=== PATIENT | male | born 1965 | race Caucasian/White ===

== ENCOUNTER 2023-06-06 14:02 | Outpatient (AMB) | payer BC, SELFPAY ==
--- NOTE | 2023-06-06 14:29 | HO.NEPHOV ---
HPI HPI Comments History of Present Illness Details I would the privilege of seeing Peewee in consultation lower extremity edema. He has history of vascular disease. He had undergone left AKA in [place] during a work trip many years ago due to acute ischemic left lower extremity. He subsequently underwent right fem tibial bypass in [place]. He has been having underlying edema on the right lower extremity. He denies any symptoms of right heart failure. He has not known to have any proteinuria, liver dysfunction , renal failure. He has not been on any medication causing lower extremity edema. He is known to have nephrolithiasis and has been on potassium citrate. He takes Topamax. She denied taking excess sodium in the diet. He has been taking furosemide with modest improvement. He denies any chest pain, shortness of breath or urinary symptoms. His renal functions are normal. [facility] Medical History (Updated 07/08/23 @ 12:49 by Kwaku Bellamy MD) Phantom limb pain Peripheral vascular disease Peripheral edema Neuropathic pain of lower extremity Limitation due to disability Hypogonadism male Hypertension HLD (hyperlipidemia) Edema leg Dysbetalipoproteinemia Surgical History (Updated 06/06/23 @ 14:12 by Latanya Tomas MA) S/P AKA (above knee amputation) Family History (Updated 06/06/23 @ 14:13 by Latanya Tomas MA) Father Alzheimer disease Stroke Social History (Updated 06/06/23 @ 14:13 by Latanya Tomas MA) Alcohol intake: former Patient Tobacco Use Status: Never used Tobacco Vital Signs 06/06/23 14:31 Height 6 ft Weight 281 lb 4 oz BMI 38.1 BP 134/90 H Blood Pressure Location Lt brachial Position Sitting Pulse 94 Pulse Source Pulse Oximeter Pulse Oximetry (%) 96 Oxygen Delivery Method Room Air Physical Exam Vital Signs: Last Vital Signs Pulse 94 06/06/23 14:31 BP 134/90 H 06/06/23 14:31 Pulse Ox 96 06/06/23 14:31 Oxygen Delivery Method Room Air 06/06/23 14:31 BMI result Body Mass Index 38.1 Const General: comfortable and no acute distress Orientation/consciousness: patient oriented x3 HEENT Head: Yes normocephalic Mouth: Normal oral and palatal mucosa present Eyes EOM: EOMs intact bilaterally Neck Neck: Yes supple Resp Auscultation: clear to auscultation bilaterally Cardio Jugular venous distension: no JVD Rate: regular rate GI Palpation (GI): Soft to palpation Auscultation: normal bowel sounds General: Yes no CVA tenderness Back/Spine/Pelvis Back: no CVA tenderness Skin General skin exam: no rashes or lesions noted Neuro General: patient oriented x3 and moves all extremities Extrem Other: L AKA Assessment & Plan Assessment & Plan (1) Edema: Code(s): R60.9 - Edema, unspecified Qualifiers: Edema type: unspecified Qualified Code(s): R60.9 - Edema, unspecified Plan Peewee has lower extremity edema most likely due to multifactorial etiology. He has vascular disease and has undergone femoro tibial bypass on that extremity. He denies consuming excessive sodium in the diet. I have ordered urine for protein, pro BNP, liver function and renal functions. I have switched his furosemide to hydrochlorothiazide 3 times a week. He also takes potassium citrate for nephrolithiasis. If he has not had an echocardiogram recently, it is worth doing the same. All these have been discussed in detail. I answered all his and his 's questions. Follow-up appointment given Orders: Orders NT-proBNP 06/06/23 R60.9 - Edema, unspecified Alanine Aminotransferase 06/06/23 R60.9 - Edema, unspecified Blood Urea Nitrogen 06/06/23 R60.9 - Edema, unspecified Creatinine 06/06/23 R60.9 - Edema, unspecified Aspartate Amino Transferase 06/06/23 R60.9 - Edema, unspecified Albumin Level 06/06/23 R60.9 - Edema, unspecified Protein Creatinine Ratio, Ur 06/06/23 R60.9 - Edema, unspecified Electrolytes 06/06/23 R60.9 - Edema, unspecified Medications: New hydrochlorothiazide 12.5 mg PO 3XW 13 tabs 3RF 30 days Coding Level of Care Code New Pt Level 4 (84432) Diagnoses Edema, unspecified type R60.9 Edema type: unspecified Results Reviewed Nephrology Results: No Data to Display
[2023-06-06 14:31] VITALS: BP 134/90; PULSE 94; O2SAT 96; BMI 38.1
== END 2023-06-06 15:32 | disposition home or self-care (01) ==
PROVIDERS: PCP Family Medicine; Referring Provider Family Medicine; Visit Provider Internal Medicine Nephrology
DX: R60.9 Edema, unspecified (principal)
CPT/HCPCS: 99204

== ENCOUNTER → 2023-06-06 14:02 | Outpatient (BNVA) | payer BC, SELFPAY | PROVIDERS: PCP Family Medicine; Referring Provider Family Medicine; Visit Provider Internal Medicine Nephrology ==

== ENCOUNTER 2023-07-11 14:14 | Outpatient (AMB) | payer BC, SELFPAY ==
--- NOTE | 2023-07-11 14:23 | HO.NEPHOV_ITS ---
HPI HPI Comments History of Present Illness Details I would the privilege of seeing Peewee in follow up lower extremity edema. He has history of vascular disease. He had undergone left AKA in [place] during a work trip many years ago due to acute ischemic left lower extremity. He subsequently underwent right fem tibial bypass in [place]. He has been having underlying edema on the right lower extremity. He denies any symptoms of right heart failure. He has not known to have any proteinuria, liver dysfunction , renal failure. He has not been on any medication causing lower extremity edema. He is known to have nephrolithiasis and has been on potassium citrate. He takes Topamax. She denied taking excess sodium in the diet. He has been taking furosemide with modest improvement. He denies any chest pain, shortness of breath or urinary symptoms. His renal functions are normal. [facility] Medical History (Updated 07/08/23 @ 12:49 by Kwaku Bellamy MD) Phantom limb pain Peripheral vascular disease Peripheral edema Neuropathic pain of lower extremity Limitation due to disability Hypogonadism male Hypertension HLD (hyperlipidemia) Edema leg Dysbetalipoproteinemia Surgical History S/P AKA (above knee amputation) Family History Father Alzheimer disease Stroke Social History Alcohol intake: former Patient Tobacco Use Status: Never used Tobacco Vital Signs 07/11/23 14:25 Height 6 ft Weight 289 lb 2 oz BMI 39.2 BP 122/80 Blood Pressure Location Lt brachial Position Sitting Pulse 77 Pulse Source Pulse Oximeter Pulse Oximetry (%) 98 Oxygen Delivery Method Room Air Physical Exam Vital Signs: Last Vital Signs Pulse 77 07/11/23 14:25 BP 122/80 07/11/23 14:25 Pulse Ox 98 07/11/23 14:25 Oxygen Delivery Method Room Air 07/11/23 14:25 BMI result Body Mass Index 39.2 Const General: comfortable and no acute distress Orientation/consciousness: patient oriented x3 HEENT Head: Yes normocephalic Mouth: Normal oral and palatal mucosa present Eyes EOM: EOMs intact bilaterally Neck Neck: Yes supple Resp Auscultation: clear to auscultation bilaterally Cardio Jugular venous distension: no JVD Rate: regular rate GI Palpation (GI): Soft to palpation Auscultation: normal bowel sounds General: Yes no CVA tenderness Back/Spine/Pelvis Back: no CVA tenderness Skin General skin exam: no rashes or lesions noted Neuro General: patient oriented x3 and moves all extremities Assessment & Plan Assessment & Plan (1) Edema: Code(s): R60.9 - Edema, unspecified Qualifiers: Edema type: unspecified Qualified Code(s): R60.9 - Edema, unspecified Plan Peewee has lower extremity edema most likely due to multifactorial etiology. He has vascular disease and has undergone femoro tibial bypass on that extremity. He denies consuming excessive sodium in the diet. His urine was negative for protein, liver function , renal functions are normal. I increased his hydrochlorothiazide daily. He is going to have an echocardiogram . All these have been discussed in detail. I answered all his and his 's questions. Labs ordered. Follow-up appointment given Orders: Orders Creatinine Today R60.9 - Edema, unspecified Blood Urea Nitrogen Today R60.9 - Edema, unspecified Electrolytes Today R60.9 - Edema, unspecified Medications: New hydrochlorothiazide 12.5 mg PO DAILY 90 tabs 4RF Coding Level of Care Code Est Pt Level 3 (47160) Diagnoses Edema, unspecified type R60.9 Edema type: unspecified Results Reviewed Nephrology Results: No Data to Display
[2023-07-11 14:25] VITALS: BP 122/80; PULSE 77; O2SAT 98; BMI 39.2
== END 2023-07-11 15:19 | disposition home or self-care (01) ==
LOC: HO.HKAS 14:15
PROVIDERS: PCP Family Medicine; Visit Provider Internal Medicine Nephrology
DX: R60.9 Edema, unspecified (principal)
CPT/HCPCS: 99213

== ENCOUNTER → 2023-07-11 14:14 | Outpatient (BNVA) | payer BC, SELFPAY | PROVIDERS: PCP Family Medicine; Visit Provider Internal Medicine Nephrology ==

== ENCOUNTER 2023-08-29 12:19 | Outpatient (AMB) | payer BC, SELFPAY ==
[2023-08-29 12:21] VITALS: BP 122/80; PULSE 86; O2SAT 97; BMI 37.8
--- NOTE | 2023-08-29 12:21 | HO.NEPHOV ---
Vital Signs 08/29/23 12:21 Height 6 ft Weight 278 lb 8 oz BMI 37.8 BP 122/80 Blood Pressure Location Lt brachial Position Sitting Pulse 86 Pulse Source Pulse Oximeter Pulse Oximetry (%) 97 Oxygen Delivery Method Room Air Intake Visit Reasons: 2 mon follow up/ Confirmed Glove Cleaner Required: No Accompanied by: Spouse Allergies No Known Allergies Allergy (Verified 08/29/23 12:22) HPI Comments Details: I would the privilege of seeing Peewee in follow up lower extremity edema. He has history of vascular disease. He had undergone left AKA in [place] during a work trip many years ago due to acute ischemic left lower extremity. He subsequently underwent right fem tibial bypass in [place]. He has been having underlying edema on the right lower extremity. He denies any symptoms of right heart failure. He has not known to have any proteinuria, liver dysfunction , renal failure. He has not been on any medication causing lower extremity edema. He is known to have nephrolithiasis and has been on potassium citrate. He takes Topamax. She denied taking excess sodium in the diet. He denies any chest pain, shortness of breath or urinary symptoms. His renal functions are normal. He had improvement in edema with current dose of HCTZ [facility] Medical History (Updated 07/08/23 @ 12:49 by Kwaku Bellamy MD) Phantom limb pain Peripheral vascular disease Peripheral edema Neuropathic pain of lower extremity Limitation due to disability Hypogonadism male Hypertension HLD (hyperlipidemia) Edema leg Dysbetalipoproteinemia Surgical History S/P AKA (above knee amputation) Family History Father Alzheimer disease Stroke Social History Alcohol intake: former Patient Tobacco Use Status: Never used Tobacco Physical Exam Vital Signs: BMI result Body Mass Index 37.8 Const General: comfortable and no acute distress Orientation/consciousness: patient oriented x3 HEENT Head: Yes normocephalic Mouth: Normal oral and palatal mucosa present Eyes EOM: EOMs intact bilaterally Neck Neck: Yes supple Resp Auscultation: clear to auscultation bilaterally Cardio Jugular venous distension: no JVD Rate: regular rate GI Palpation (GI): Soft to palpation Auscultation: normal bowel sounds General: Yes no CVA tenderness Back/Spine/Pelvis Back: no CVA tenderness Skin General skin exam: no rashes or lesions noted Neuro General: patient oriented x3 Results Reviewed Nephrology Results: No Data to Display Assessment & Plan Assessment & Plan (1) Edema: Code(s): R60.9 - Edema, unspecified Category: Medical Qualifiers: Edema type: unspecified Qualified Code(s): R60.9 - Edema, unspecified Plan Peewee has lower extremity edema most likely due to multifactorial etiology. He has vascular disease and has undergone femoro tibial bypass on that extremity. He denies consuming excessive sodium in the diet. His urine was negative for protein, liver function , renal functions are normal. I increased his hydrochlorothiazide to 25 mg alternating with 12.5 mg every other day. He has an appointment for echocardiogram . All these have been discussed in detail. I answered all his and his 's questions. Labs ordered. Follow-up appointment given Orders: Orders Creatinine Today R60.9 - Edema, unspecified Blood Urea Nitrogen Today R60.9 - Edema, unspecified Electrolytes Today R60.9 - Edema, unspecified Calcium Today R60.9 - Edema, unspecified Medications: New cephalexin 500 mg PO QID 7 days 28 caps 0RF Changed From hydrochlorothiazide 12.5 mg PO DAILY 90 tabs 4RF To hydrochlorothiazide 25 mg (2 x 12.5 mg) PO DAILY 90 days 180 tabs 4RF Discontinued hydrochlorothiazide Discontinued Reason: Doctor's Order 12.5 mg PO 3XW 30 days 13 tabs 3RF
== END 2023-08-29 13:08 | disposition home or self-care (01) ==
PROVIDERS: PCP Family Medicine; Visit Provider Internal Medicine Nephrology
DX: R60.9 Edema, unspecified (principal)
CPT/HCPCS: 99214

== ENCOUNTER → 2023-08-29 12:19 | Outpatient (BNVA) | payer BC, SELFPAY | PROVIDERS: PCP Family Medicine; Visit Provider Internal Medicine Nephrology ==

== ENCOUNTER 2023-12-03 11:13 | Outpatient (AMB) | payer BC, SELFPAY ==
--- NOTE | 2023-12-03 11:35 | HO.NEPHOV ---
Vital Signs 12/03/23 11:36 Height 6 ft Weight 271 lb 2 oz BMI 36.8 BP 110/62 Blood Pressure Location Rt brachial Position Sitting Pulse 68 Pulse Source Pulse Oximeter Pulse Oximetry (%) 94 Oxygen Delivery Method Room Air Intake Visit Reasons: 3 MONTH F/U/ Conf Field Underwriter Required: No Accompanied by: Spouse Allergies No Known Allergies Allergy (Verified 12/03/23 11:40) HPI Comments Details: I would the privilege of seeing Peewee in follow up lower extremity edema. He has history of vascular disease. He had undergone left AKA in [place] during a work trip many years ago due to acute ischemic left lower extremity. He subsequently underwent right fem tibial bypass in [place]. He has been having underlying edema on the right lower extremity. He denies any symptoms of right heart failure. He has not known to have any proteinuria, liver dysfunction , renal failure. He has not been on any medication causing lower extremity edema. He is known to have nephrolithiasis and has been on potassium citrate. He takes Topamax. She denied taking excess sodium in the diet. He denies any chest pain, shortness of breath or urinary symptoms. His renal functions are normal. He had improvement in edema with current dose of HCTZ [facility] Medical History (Updated 07/08/23 @ 12:49 by Kwaku Bellamy MD) Phantom limb pain Peripheral vascular disease Peripheral edema Neuropathic pain of lower extremity Limitation due to disability Hypogonadism male Hypertension HLD (hyperlipidemia) Edema leg Dysbetalipoproteinemia Surgical History S/P AKA (above knee amputation) Family History Father Alzheimer disease Stroke Social History Alcohol intake: former Patient Tobacco Use Status: Never used Tobacco Physical Exam Vital Signs: Last Vital Signs Pulse 68 12/03/23 11:36 BP 110/62 12/03/23 11:36 Pulse Ox 94 12/03/23 11:36 Oxygen Delivery Method Room Air 12/03/23 11:36 BMI result Body Mass Index 36.8 Const General: comfortable and no acute distress Orientation/consciousness: patient oriented x3 HEENT Head: Yes normocephalic Mouth: Normal oral and palatal mucosa present Eyes EOM: EOMs intact bilaterally Neck Neck: Yes supple Resp Auscultation: clear to auscultation bilaterally Cardio Jugular venous distension: no JVD Rate: regular rate GI Palpation (GI): Soft to palpation Auscultation: normal bowel sounds General: Yes no CVA tenderness Back/Spine/Pelvis Back: no CVA tenderness Skin General skin exam: no rashes or lesions noted Neuro General: patient oriented x3 and moves all extremities Results Reviewed Nephrology Results: No Data to Display Assessment & Plan Assessment & Plan (1) Edema: Code(s): R60.9 - Edema, unspecified Category: Medical Qualifiers: Edema type: unspecified Qualified Code(s): R60.9 - Edema, unspecified Plan Peewee has lower extremity edema most likely due to multifactorial etiology. He has vascular disease and has undergone femoro tibial bypass on that extremity. He denies consuming excessive sodium in the diet. His urine was negative for protein, liver function , renal functions are normal. He can continue hydrochlorothiazide 25 mg daily which can be brought down to 25 mg alternating with 12.5 mg every other day, if his swelling consistently remains okay.. He has an appointment for echocardiogram . All these have been discussed in detail. I answered all his and his 's questions. Labs ordered. Follow-up appointment given Orders: Orders Electrolytes 3 Months R60.9 - Edema, unspecified Calcium 6 Months R60.9 - Edema, unspecified Electrolytes 6 Months R60.9 - Edema, unspecified Creatinine 6 Months R60.9 - Edema, unspecified Creatinine 3 Months R60.9 - Edema, unspecified Blood Urea Nitrogen 3 Months R60.9 - Edema, unspecified Calcium 3 Months R60.9 - Edema, unspecified Blood Urea Nitrogen 6 Months R60.9 - Edema, unspecified Coding Level of Care Code Est Pt Level 4 (34152) Diagnoses Edema, unspecified type R60.9 Edema type: unspecified
[2023-12-03 11:36] VITALS: BP 110/62; PULSE 68; O2SAT 94; BMI 36.8
== END 2023-12-03 12:07 | disposition home or self-care (01) ==
PROVIDERS: PCP Family Medicine; Referring Provider Family Medicine; Visit Provider Internal Medicine Nephrology
DX: R60.9 Edema, unspecified (principal)
CPT/HCPCS: 99214

== ENCOUNTER → 2023-12-03 11:13 | Outpatient (BNVA) | payer BC, SELFPAY | PROVIDERS: PCP Family Medicine; Visit Provider Internal Medicine Nephrology ==

== ENCOUNTER 2024-06-16 13:58 | Outpatient (AMB) | payer BC, SELFPAY ==
--- NOTE | 2024-06-16 14:03 | HO.NEPHOV_ITS ---
Vital Signs 06/16/24 14:09 Height 6 ft Weight 270 lb 8 oz BMI 36.7 BP 110/80 Blood Pressure Location Lt brachial Position Sitting Pulse 78 Pulse Source Pulse Oximeter Pulse Oximetry (%) 97 Oxygen Delivery Method Room Air Intake Visit Reasons: Edema-Conf Salesperson Men'S Hats Required: No Accompanied by: Spouse Allergies No Known Allergies Allergy (Verified 06/16/24 14:09) HPI Comments Details: Peewee was seen in follow up lower extremity edema. He has history of vascular disease. He had undergone left AKA in [place] during a work trip many years ago due to acute ischemic left lower extremity. He subsequently underwent right fem tibial bypass in [place]. He has been having underlying edema on the right lower extremity. He denies any symptoms of right heart failure. He has not known to have any proteinuria, liver dysfunction , renal failure. He has not been on any medication causing lower extremity edema. He is known to have nephrolithiasis and has been on potassium citrate. He takes Topamax. She denied taking excess sodium in the diet. He denies any chest pain, shortness of breath or urinary symptoms. His renal functions are normal. He had improvement in edema with current dose of HCTZ. [facility] Medical History (Updated 06/16/24 @ 14:33 by Kwaku Bellamy MD) Phantom limb pain Peripheral vascular disease Peripheral edema Neuropathic pain of lower extremity Limitation due to disability Hypogonadism male Hypertension HLD (hyperlipidemia) Edema leg Dysbetalipoproteinemia Surgical History S/P AKA (above knee amputation) Family History Father Alzheimer disease Stroke Social History Alcohol intake: former Patient Tobacco Use Status: Never used Tobacco Review of Systems Const All systems reviewed & are unremarkable except as noted in HPI and below Physical Exam Const General: comfortable and no acute distress Orientation/consciousness: patient oriented x3 HEENT Head: Yes normocephalic Mouth: Normal oral and palatal mucosa present Eyes EOM: EOMs intact bilaterally Neck Neck: Yes supple Resp Auscultation: clear to auscultation bilaterally Cardio Jugular venous distension: no JVD Rate: regular rate GI Palpation (GI): Soft to palpation Auscultation: normal bowel sounds General: Yes no CVA tenderness Back/Spine/Pelvis Back: no CVA tenderness Skin General skin exam: no rashes or lesions noted Neuro General: patient oriented x3 and moves all extremities Results Reviewed Nephrology Results: No Data to Display Assessment & Plan Assessment & Plan (1) Edema: Code(s): R60.9 - Edema, unspecified Category: Medical Qualifiers: Edema type: unspecified Qualified Code(s): R60.9 - Edema, unspecified (2) Hypokalemia: Code(s): E87.6 - Hypokalemia Category: Medical Plan Peewee has lower extremity edema most likely due to multifactorial etiology. He has vascular disease and has undergone femoro tibial bypass on that extremity. He denies consuming excessive sodium in the diet. His urine was negative for protein, liver function , renal functions are normal. He can continue hydrochlorothiazide 25 mg daily . He had the echocardiogram . He is on K replacement which I increased to 20 MEQ bid. I answered all his and his 's questions.Follow-up appointment given Orders: Orders Blood Urea Nitrogen 3 Months E87.6 - Hypokalemia, R60.9 - Edema, unspecified Electrolytes 3 Months E87.6 - Hypokalemia, R60.9 - Edema, unspecified Creatinine 3 Months E87.6 - Hypokalemia, R60.9 - Edema, unspecified Electrolytes 6 Months E87.6 - Hypokalemia, R60.9 - Edema, unspecified Blood Urea Nitrogen 6 Months E87.6 - Hypokalemia, R60.9 - Edema, unspecified Creatinine 6 Months E87.6 - Hypokalemia, R60.9 - Edema, unspecified Medications: Changed From potassium citrate ER 10 mEq PO TID To potassium citrate ER 20 mEq (2 x 10 mEq (1,080 mg)) PO BID 30 days 120 tabs 10RF Coding Level of Care Code Est Pt Level 4 (62599) Diagnoses Edema, unspecified type R60.9 Edema type: unspecified Hypokalemia E87.6
[2024-06-16 14:09] VITALS: BP 110/80; PULSE 78; O2SAT 97; BMI 36.7
== END 2024-06-16 14:45 | disposition home or self-care (01) ==
PROVIDERS: PCP Family Medicine; Visit Provider Internal Medicine Nephrology
DX: R60.9 Edema, unspecified (principal); E87.6 Hypokalemia
CPT/HCPCS: 99214

== ENCOUNTER 2024-11-25 15:52 | Outpatient (REF) | payer BC, SELFPAY ==
--- OUTSIDE RECORDS SUMMARY | 2024-11-25 15:55 | XMS_ITS | Clinical Summary ---
Author Organization [facility] ity Address [id number] [place] [id number] Care Team Providers Care Bridge Maintainer Name Role Phone Elias Betts DO Primary Care Provider [phone] Social History Tobacco Use Types Packs/Day Years Used Date Smoking Tobacco: Never Assessed Sex and Gender Information Value Date Recorded Sex Assigned at Not on file Legal Sex Male 8:39 PM EST Gender Identity Not on file Sexual Orientation Not on file Plan of Treatment Health Maintenance Due Date Last Done Comments DTaP,Tdap,and Td Vaccines (1 - Tdap) 1982 Pneumococcal Vaccine: 50+ Ye ars (1 of 1 - PCV) 2013 Zoster Vaccines (1 of 2) 2013 Cholesterol Screening (Lipid Panel) 06/07/2023 Colorectal Cancer Screening: Colonoscopy 06/07/2023 Depression Screening 06/07/2023 HIV Screening 06/07/2023 Hepatitis C Screening 06/07/2023 Social Influencers of Health Screening 06/07/2023 COVID-19 Vaccine (1 - 2023-2 5 season) 2024 Influenza Vaccine (#1) 2025 RSV Immunization Adult Patie nts (1 - 1-dose 75+ series) 2038 HIB Vaccines Aged Out No longer eligi ble based on patient's age to complete this topic HPV Vaccines Aged Out No longer eligi ble based on patient's age to complete this topic Hepatitis A Vaccines Aged Out No long er eligible based on patient's age to complete this topic Hepatitis B Vaccines Aged Out No long er eligible based on patient's age to complete this topic IPV Vaccines Aged Out No longer eligi ble based on patient's age to complete this topic MMR Vaccines Aged Out No longer eligi ble based on patient's age to complete this topic Meningococcal ACWY Vaccine Aged Out N o longer eligible based on patient's age to complete this topic Meningococcal B Vaccine Aged Out No l onger eligible based on patient's age to complete this topic RSV Immunization Patients Un jose 20 months Aged Out No longer eligible b ased on patient's age to complete this topic Varicella Vaccines Aged Out No longer eligible based on patient's age to complete this topic Care Teams Bridge Maintainer Relationship Specialty Start Date End Date Elias Betts DO [address], [place] PCP - General 04/03/23
[2024-11-25 18:48] LABS: Anion Gap 14 (12-20); Blood Urea Nitrogen 25 mg/dL (9-16); Carbon Dioxide 25 mmol/L (22-29); Chloride 103 mmol/L (96-108); Estimated Glomerular Filt Rate 52; Potassium 2.9 mmol/L (3.3-5.1); Sodium 139 mmol/L (135-145)
== END 2024-11-25 15:53 | disposition home or self-care (01) ==
LOC: HO.HKASLDS 15:52
PROVIDERS: Visit Provider Internal Medicine Nephrology
DX: E87.6 Hypokalemia (principal); R06.9 Unspecified abnormalities of breathing
CPT/HCPCS: 36415; 80051; 82565; 84520

== ENCOUNTER 2024-12-07 14:50 | Outpatient (REF) | payer BC, SELFPAY ==
--- OUTSIDE RECORDS SUMMARY | 2024-12-07 15:24 | XMS_ITS | Clinical Summary ---
Author Organization [facility] ity Address [id number] [place] [id number] Care Team Providers Care Sport Psychologist Name Role Phone Elias Betts DO Primary Care Provider [phone] Social History Tobacco Use Types Packs/Day Years [...] Panel) 06/07/2023 Colorectal Cancer Screening: Colonoscopy 06/07/2023 HIV Screening 06/07/2023 Hepatitis C Screening 06/07/2023 Social Influencers of Health Screening 06/07/2023 COVID-19 Vaccine ( - 2023-2 5 season) 2024 Depression Screening 05/13/2024 Influenza Vaccine (#1) 2025 RSV Immunization Adult [...] age to complete this topic Care Teams Sport Psychologist Relationship Specialty Start Date End Date Elias Betts DO [address], [place] PCP - General 04/03/23
[2024-12-07 17:46] LABS: Anion Gap 15 (12-20); Blood Urea Nitrogen 29 mg/dL (9-16); Carbon Dioxide 25 mmol/L (22-29); Chloride 105 mmol/L (96-108); Estimated Glomerular Filt Rate 52; Potassium 3.4 mmol/L (3.3-5.1); Sodium 142 mmol/L (135-145)
== END 2024-12-07 14:51 | disposition home or self-care (01) ==
LOC: HO.HKASLDS 14:50
PROVIDERS: Visit Provider Internal Medicine Nephrology
DX: E87.6 Hypokalemia (principal)
CPT/HCPCS: 36415; 80051; 82565; 84520

== ENCOUNTER 2024-12-31 11:19 | Outpatient (AMB) | payer BC, SELFPAY ==
--- NOTE | 2024-12-31 11:44 | HO.NEPHOV_ITS ---
Vital Signs 12/31/24 11:48 Height 6 ft Weight 270 lb 8 oz BMI 36.7 BP 122/82 Blood Pressure Location Lt brachial Position Sitting Pulse 70 Pulse Source Pulse Oximeter Pulse Oximetry (%) 97 Oxygen Delivery Method Room Air Intake Visit Reasons: Follow up 6mo-Conf Pbx Supervisor Required: No Accompanied by: Spouse Allergies No Known Allergies Allergy (Verified 12/31/24 11:47) HPI Comments Details: Peewee was seen in follow up lower extremity edema. He has history of vascular disease. He had undergone left AKA in [place] during a work trip many years ago due to acute ischemic left lower extremity. He subsequently underwent right fem tibial bypass in [place]. He has been having underlying edema on the right lower extremity. He denies any symptoms of right heart failure. He has not known to have any proteinuria, liver dysfunction , renal failure. He has no t been on any medication causing lower extremity edema. He is known to have nephrolithiasis and has been on potassium citrate. He takes Topamax. She denied taking excess sodium in the diet. He denies any chest pain, shortness of breath or urinary symptoms. His renal functions are stable. He is on HCTZ which has been causing him hypokalemia. [facility] Medical History (Updated 06/16/24 @ 14:33 by Kwaku Bellamy MD) Phantom limb pain Peripheral vascular disease Peripheral edema Neuropathic pain of lower extremity Limitation due to disability Hypogonadism male Hypertension HLD (hyperlipidemia) Edema leg Dysbetalipoproteinemia Surgical History S/P AKA (above knee amputation) Family History Father Alzheimer disease Stroke Social History Alcohol intake: former Patient Tobacco Use Status: Never used Tobacco Review of Systems Const All systems reviewed & are unremarkable except as noted in HPI and below Physical Exam Vital Signs: Last Vital Signs Pulse 70 12/31/24 11:48 BP 122/82 12/31/24 11:48 Pulse Ox 97 12/31/24 11:48 Oxygen Delivery Method Room Air 12/31/24 11:48 BMI result Body Mass Index 36.7 Const General: comfortable and no acute distress Orientation/consciousness: patient oriented x3 HEENT Head: Yes normocephalic Mouth: Normal oral and palatal mucosa present Eyes EOM: EOMs intact bilaterally Neck Neck: Yes supple Resp Auscultation: clear to auscultation bilaterally Cardio Jugular venous distension: no JVD Rate: regular rate GI Palpation (GI): Soft to palpation Auscultation: normal bowel sounds General: Yes no CVA tenderness Back/Spine/Pelvis Back: no CVA tenderness Skin General skin exam: no rashes or lesions noted Neuro General: patient oriented x3 and moves all extremities Results Reviewed Nephrology Results: Sodium, (135-145) 142 mmol/L 12/07/24 Potassium, (3.3-5.1) 3.4 mmol/L 12/07/24 Chloride, (96-108) 105 mmol/L 12/07/24 Carbon Dioxide, (22-29) 25 mmol/L 12/07/24 BUN, (9-16) 29 mg/dL H 12/07/24 Creatinine, (0.5-1.4) 1.39 mg/dL 12/07/24 Assessment & Plan Assessment & Plan (1) Hypokalemia: Code(s): E87.6 - Hypokalemia Category: Medical (2) Edema: Code(s): R60.9 - Edema, unspecified Category: Medical Qualifiers: Edema type: unspecified Qualified Code(s): R60.9 - Edema, unspecified Plan Peewee has lower extremity edema most likely due to multifactorial etiology. He has vascular disease and has undergone femoro tibial bypass on that extremity. He denies consuming excessive sodium in the diet. His urine was negative for protein, liver function , renal functions are normal. He can continue hydrochlorothiazide 25 mg daily . He had the echocardiogram . He is going to repeat blood work and based on it, I plan to start him on Spironolactone and D/C K supplementation. I answered all his and his 's questions.Follow-up appointment given Orders: Orders Electrolytes Today E87.6 - Hypokalemia, R60.9 - Edema, unspecified Creatinine 3 Months E87.6 - Hypokalemia, R60.9 - Edema, unspecified Blood Urea Nitrogen 3 Months E87.6 - Hypokalemia, R60.9 - Edema, unspecified Creatinine Today E87.6 - Hypokalemia, R60.9 - Edema, unspecified Blood Urea Nitrogen Today E87.6 - Hypokalemia, R60.9 - Edema, unspecified Electrolytes 3 Months E87.6 - Hypokalemia, R60.9 - Edema, unspecified Coding Level of Care Code Est Pt Level 4 (52439) Diagnoses Hypokalemia E87.6 Edema, unspecified type R60.9 Edema type: unspecified
[2024-12-31 11:48] VITALS: BP 122/82; PULSE 70; O2SAT 97; BMI 36.7
== END 2024-12-31 12:22 | disposition home or self-care (01) ==
LOC: HO.HKAS 11:20
PROVIDERS: PCP Family Medicine; Visit Provider Internal Medicine Nephrology
DX: E87.6 Hypokalemia (principal); R60.9 Edema, unspecified
CPT/HCPCS: 99214

== ENCOUNTER 2025-01-05 14:29 | Outpatient (REF) | payer BC, SELFPAY ==
--- OUTSIDE RECORDS SUMMARY | 2025-01-05 15:29 | XMS_ITS | Clinical Summary ---
Author Organization [facility] ity Address [id number] [place] [id number] Care Team Providers Care Adobe Flex Developer Name Role Phone Elias Betts DO Primary Care Provider [phone] Social History Tobacco Use Types Packs/Day Years [...] age to complete this topic Care Teams Adobe Flex Developer Relationship Specialty Start Date End Date Elias Betts DO [address], [place] PCP - General 04/03/23
[2025-01-05 18:38] LABS: Anion Gap 13 (12-20); Blood Urea Nitrogen 28 mg/dL (9-16); Carbon Dioxide 25 mmol/L (22-29); Chloride 106 mmol/L (96-108); Estimated Glomerular Filt Rate 56; Potassium 3.3 mmol/L (3.3-5.1); Sodium 141 mmol/L (135-145)
== END 2025-01-05 14:30 | disposition home or self-care (01) ==
LOC: HO.HKASLDS 14:29
PROVIDERS: Visit Provider Internal Medicine Nephrology
DX: E87.6 Hypokalemia (principal); R60.9 Edema, unspecified
CPT/HCPCS: 36415; 80051; 82565; 84520

== ENCOUNTER 2025-02-04 15:14 | Outpatient (REF) | payer BC, SELFPAY ==
[2025-02-04 18:35] LABS: Anion Gap 11 (12-20); Blood Urea Nitrogen 25 mg/dL (9-16); Carbon Dioxide 28 mmol/L (22-29); Chloride 105 mmol/L (96-108); Estimated Glomerular Filt Rate > 60; Potassium 3.3 mmol/L (3.3-5.1); Sodium 141 mmol/L (135-145)
== END 2025-02-04 15:15 | disposition home or self-care (01) ==
LOC: HO.HKASLDS 15:14
PROVIDERS: Visit Provider Internal Medicine Nephrology
DX: E87.6 Hypokalemia (principal); R60.9 Edema, unspecified
CPT/HCPCS: 36415; 80051; 82565; 84520

== ENCOUNTER 2025-04-07 14:42 | Outpatient (REF) | payer BC, SELFPAY ==
[2025-04-07 18:38] LABS: Anion Gap 13 (12-20); Blood Urea Nitrogen 32 mg/dL (9-16); Carbon Dioxide 25 mmol/L (22-29); Chloride 104 mmol/L (96-108); Estimated Glomerular Filt Rate 54; Potassium 3.3 mmol/L (3.3-5.1); Sodium 139 mmol/L (135-145)
== END 2025-04-07 14:43 | disposition home or self-care (01) ==
LOC: HO.HKASLDS 14:42
PROVIDERS: Visit Provider Internal Medicine Nephrology
DX: E87.6 Hypokalemia (principal); R60.9 Edema, unspecified
CPT/HCPCS: 36415; 80051; 82565; 84520

== ENCOUNTER 2025-04-15 11:32 | Outpatient (AMB) | payer BC, SELFPAY ==
--- NOTE | 2025-04-15 11:38 | HO.NEPHOV_ITS ---
Vital Signs 04/15/25 11:41 Height 6 ft Weight 281 lb 4 oz BMI 38.1 BP 110/80 Blood Pressure Location Lt brachial Position Sitting Pulse 64 Pulse Source Pulse Oximeter Pulse Oximetry (%) 96 Oxygen Delivery Method Room Air Intake Visit Reasons: 3mon f/u w/labs-Conf w/ [facility] Required: No Accompanied by: Spouse Allergies No Known Allergies Allergy (Verified 04/15/25 11:41) HPI Comments Details: Peewee was seen in follow up lower extremity edema. He has history of vascular disease. He had undergone left AKA in [place] during a work trip many years ago due to acute ischemic left lower extremity. He subsequently underwent right fem tibial bypass in [place]. He has been having underlying edema on the right lower extremity. He denies any symptoms of right heart failure. He has not known to have any proteinuria, liver dysfunction , renal failure. He has not been on any medication causing lower extremity edema. He is known to have nephrolithiasis and has been on potassium citrate. He takes Topamax. She denied taking excess sodium in the diet. He denies any chest pain, shortness of breath or urinary symptoms. His renal functions are stable. He is on HCTZ which has been causing him hypokalemia. [facility] Medical History (Updated 06/16/24 @ 14:33 by Kwaku Bellamy MD) Phantom limb pain Peripheral vascular disease Peripheral edema Neuropathic pain of lower extremity Limitation due to disability Hypogonadism male Hypertension HLD (hyperlipidemia) Edema leg Dysbetalipoproteinemia Surgical History S/P AKA (above knee amputation) Family History Father Alzheimer disease Stroke Social History Alcohol intake: former Patient Tobacco Use Status: Never used Tobacco Review of Systems Const All systems reviewed & are unremarkable except as noted in HPI and below Physical Exam Vital Signs: Last Vital Signs Pulse 64 04/15/25 11:41 BP 110/80 04/15/25 11:41 Pulse Ox 96 04/15/25 11:41 Oxygen Delivery Method Room Air 04/15/25 11:41 BMI result Body Mass Index 38.1 Const General: comfortable and no acute distress Orientation/consciousness: patient oriented x3 HEENT Head: Yes normocephalic Mouth: Normal oral and palatal mucosa present Eyes EOM: EOMs intact bilaterally Neck Neck: Yes supple Resp Auscultation: clear to auscultation bilaterally Cardio Jugular venous distension: no JVD Rate: regular rate GI Palpation (GI): Soft to palpation Auscultation: normal bowel sounds General: Yes no CVA tenderness Back/Spine/Pelvis Back: no CVA tenderness Skin General skin exam: no rashes or lesions noted Neuro General: patient oriented x3 and moves all extremities Extrem General: Yes no pedal edema Results Reviewed Nephrology Results: Sodium, (135-145) 139 mmol/L 04/07/25 Potassium, (3.3-5.1) 3.3 mmol/L 04/07/25 Chloride, (96-108) 104 mmol/L 04/07/25 Carbon Dioxide, (22-29) 25 mmol/L 04/07/25 BUN, (9-16) 32 mg/dL H 04/07/25 Creatinine, (0.5-1.4) 1.34 mg/dL 04/07/25 Assessment & Plan Assessment & Plan (1) Edema: Code(s): R60.9 - Edema, unspecified Category: Medical Qualifiers: Edema type: unspecified Qualified Code(s): R60.9 - Edema, unspecified (2) Hypokalemia: Code(s): E87.6 - Hypokalemia Category: Medical Plan Peewee has lower extremity edema most likely due to multifactorial etiology. He has vascular disease and has undergone femoro tibial bypass on that extremity. He denies consuming excessive sodium in the diet. His urine was negative for protein, liver function , renal functions are normal. He can continue hydrochlorothiazide 25 mg daily as well as Spironolactone 50 mg daily . He had the echocardiogram. I answered all his and his 's questions.Follow-up appointment given Orders: Orders Blood Urea Nitrogen 6 Months E87.6 - Hypokalemia, R60.9 - Edema, unspecified Blood Urea Nitrogen 3 Months E87.6 - Hypokalemia, R60.9 - Edema, unspecified Creatinine 3 Months E87.6 - Hypokalemia, R60.9 - Edema, unspecified Electrolytes 6 Months E87.6 - Hypokalemia, R60.9 - Edema, unspecified Creatinine 6 Months E87.6 - Hypokalemia, R60.9 - Edema, unspecified Electrolytes 3 Months E87.6 - Hypokalemia, R60.9 - Edema, unspecified Medications: Changed From hydrochlorothiazide 25 mg (2 x 12.5 mg) PO DAILY 180 tabs 4RF To hydrochlorothiazide 25 mg PO DAILY 90 tabs 4RF Refilled spironolactone 50 mg PO DAILY 90 tabs 6RF 90 days Coding Level of Care Code Est Pt Level 4 (52486) Diagnoses Edema, unspecified type R60.9 Edema type: unspecified Hypokalemia E87.6
[2025-04-15 11:41] VITALS: BP 110/80; PULSE 64; O2SAT 96; BMI 38.1
== END 2025-04-15 12:24 | disposition home or self-care (01) ==
LOC: HO.HKAS 11:32
PROVIDERS: PCP Family Medicine; Visit Provider Internal Medicine Nephrology
DX: R60.9 Edema, unspecified (principal); E87.6 Hypokalemia
CPT/HCPCS: 99214